=== PATIENT | male | born 1970 | race Hispanic/Latino ===

== ENCOUNTER 2024-05-09 11:36 | Outpatient (CLI) | payer BC ==
[2024-05-09 13:06] LABS: #Basophils 0.03 10x3/uL (0.0-0.2); %Basophils 0.9 % (0.0-1.0); %Eosinophils 2.6 % (0.0-10.0); %Lymphocytes 33.6 % (21.0-51.0); %Monocytes 7.5 % (0.0-10.0); %Neutrophils 55.1 % (42.0-75.0); Hematocrit 44.8 % (42.0-52.0); Hemoglobin 15.3 g/dL (14.0-18.0); Mean Corpuscular HGB CONC 34.2 g/dL (32.0-36.0); Mean Corpuscular Hemoglobin 29.4 pg (27.0-31.0); Mean Platelet Volume 9.9 fL (7.4-10.4); Platelet Count 224 10x3/uL (130-400); RBC Distribution Width 13.4 % (11.5-14.5); Red Blood Cell (RBC) Count 5.21 mill/uL (4.70-6.10)
[2024-05-09 13:19] LABS: PTT 30.9 sec (22.9-36.1)
[2024-05-09 13:26] LABS: Anion Gap 10 mmol/L (10-20); BUN (Urea Nitrogen) 13 mg/dL (8.4-25.7); Calc. Creatinine Clearance 0 mL/min (70-130); Calcium 9.5 mg/dL (7.8-10.44); Carbon Dioxide 26 mmol/L (22-29); Chloride 105 mmol/L (98-107); Estimated GFR 92; Glucose 113 mg/dL (70-105); Sodium 137 mmol/L (136-145)
== END 2024-05-09 11:37 | disposition home or self-care (01) ==
LOC: LABBT 11:36
PROVIDERS: ATTEND Urology
DX: Z01.812 Encounter for preprocedural laboratory examination (principal); N48.9 Disorder of penis, unspecified
CPT/HCPCS: 80048; 85025; 85610; 85730

== ENCOUNTER 2024-05-17 06:17 | Day surgery (SDC) | payer BC, OTHER ==
[2024-05-09 11:53] VITALS: BMI 28.8
[2024-05-17] MEDS ORDERED: Bupivacaine PF 0.5% 30 ML VIAL ONE (06:19)
[2024-05-17] MEDS ORDERED: Bupivacaine 0.25% HCL 30 ML VIAL ONE (06:19)
[2024-05-17] MEDS ORDERED: Bacitracin Zinc Ointment 30 gm TUBE ONE (06:19)
[2024-05-17] MEDS ORDERED: Lidocaine 2% PF 5 ML VIAL ONE ×2 (06:19→06:58)
[2024-05-17] MEDS ORDERED: Lidocaine 1% (PF) 30 ML VIAL ONE (06:27)
[2024-05-17] MEDS ORDERED: Sodium Bicarbonate 2.5 MEQ/5 ML SDV ONE (06:28)
[2024-05-17] MEDS ORDERED: Propofol 500 MG/50 ML VIAL ONE (06:49)
[2024-05-17] MEDS ORDERED: fentaNYL PF 100 MCG/2 ML SYRINGE ONE (06:58)
[2024-05-17] MEDS ORDERED: PROPOFOL 20 ML ONE (06:58)
[2024-05-17] MEDS ORDERED: Midazolam HCl 2 mg/2 ml Vial ONE (06:58)
[2024-05-17] MEDS ORDERED: CEFAZOLIN 2 GM VIAL ONE (07:23)
[2024-05-17] MEDS ORDERED: Ondansetron PF 4 MG/2 ML Vial ONE (07:38)
== END 2024-05-17 09:23 | disposition home or self-care (01) ==
LOC: SDC 06:17
PROVIDERS: ATTEND Urology
PROC: 0VBSXZX Excision of Penis, External Approach, Diagnostic (ICD-10-PCS; principal; 2024-05-17)
DX: N48.89 Other specified disorders of penis (principal); I10 Essential (primary) hypertension; E78.00 Pure hypercholesterolemia, unspecified; Z79.899 Other long term (current) drug therapy
CPT/HCPCS: 88305; J0665; J2250; J2405; J2704